=== PATIENT | female | born 1985 | race Caucasian/White ===

== ENCOUNTER 2018-11-13 15:15 | Emergency (ER) | payer OTHER ==
[~2018-11-13] VITALS: Ht 167.6 cm; Wt 97.9 kg
[2018-11-13 15:35] LABS: BASOPHILS % (AUTO) 0 % (0-1); EOSINOPHILS # (AUTO) 0.08 x10^3/uL (0-0.4); EOSINOPHILS % (AUTO) 1 % (1-7); LYMPHOCYTES # (AUTO) 1.12 x10^3/uL (1-3.4); LYMPHOCYTES % (AUTO) 7 % (22-44); MD NO; MEAN CORPUSCULAR HEMOGLOBIN 31.9 pg (27.0-34.8); MEAN CORPUSCULAR HGB CONC 35.3 g/dL (32.4-35.8); MEAN CORPUSCULAR VOLUME 90.3 fL (80-100); MEAN PLATELET VOLUME 6.8 fL (7.4-10.4); MONOCYTES # (AUTO) 0.53 x10^3/uL (0.2-0.8); MONOCYTES % (AUTO) 4 % (2-9); NEUTROPHILS # (AUTO) 13.54 x10^3/uL (1.8-6.8); NEUTROPHILS % (AUTO) 89 % (42-75); PLATELET COUNT 390 x10^3/uL (130-400); RED BLOOD COUNT 4.23 x10^6/uL (3.82-5.3)
[2018-11-13 15:46] LABS: ALBUMIN 3.9 g/dL (3.4-5.0); ANION GAP 6 mmol/L (5-15); CALCIUM 8.7 mg/dL (8.5-10.1); CHLORIDE 110 mmol/L (98-107)
[2018-11-13 15:52] LABS: ALANINE AMINOTRANSFERASE 20 U/L (12-78); ALKALINE PHOSPHATASE 64 U/L (45-117); BILIRUBIN,TOTAL 0.9 mg/dL (0.2-1.0); CREATININE 0.73 mg/dL (0.55-1.02); TOTAL PROTEIN 6.9 g/dL (6.4-8.2)
--- NOTE | 2018-11-13 15:54 | NUR ---
US AT BEDSIDE.
--- NOTE | 2018-11-13 16:27 | NUR ---
PT TO ROOM 14 W/ C/O ABD PAIN STARTED THIS AM WORSENED AT 1300. PT STATES PAIN STARTED IN PELVIC REGION AND NOW HAS PAIN IN BILAT UPPER ABD QUADRANTS. PT RESTING ON GURNEY. STATES PAIN WORSE TO RUQ.
--- NOTE | 2018-11-13 16:34 | NUR ---
PT UNABLE TO PROVIDE UA SAMPLE AT THIS TIME.
--- NOTE | 2018-11-13 16:45 | NUR ---
PT RESTING ON GURNEY. RICHARDS. DISCUSSED RESULTS W/ DR. CLARISA MD RESIDENT.
--- NOTE | 2018-11-13 17:13 | NUR ---
PT TAKEN TO CT IN STABLE CONDITION.
[2018-11-13] MEDS ORDERED: OMNIPAQUE 350 MG/ML, 100ML BOTTLE ONE (17:34)
--- NOTE | 2018-11-13 18:13 | NUR ---
PT RESTING ON GURNEY. NADN. FORREST. PT CHART REVIEWED AND PLACED FOR RECHECK.
[2018-11-13 18:52] VITALS: BP 124/68
--- NOTE | 2018-11-13 19:20 | NUR ---
AT BESIDE FOR RECHECK. IVF INFUSING. POC DISCUSSED. PT AND FRIEND DENY FURTHER NEEDS AT THIS TIME.
[2018-11-13] MEDS ORDERED: SODIUM CHLORIDE 0.9%, 500ML IVBOLUS ONE (19:30)
[2018-11-13 19:31] LABS: BASOPHILS # (AUTO) 0.03 x10^3/uL (0-0.1); BASOPHILS % (AUTO) 0 % (0-1); EOSINOPHILS # (AUTO) 0.05 x10^3/uL (0-0.4); EOSINOPHILS % (AUTO) 0 % (1-7); LYMPHOCYTES # (AUTO) 1.33 x10^3/uL (1-3.4); LYMPHOCYTES % (AUTO) 12 % (22-44); MD NO; MEAN CORPUSCULAR HEMOGLOBIN 31.8 pg (27.0-34.8); MEAN CORPUSCULAR HGB CONC 34.9 g/dL (32.4-35.8); MEAN CORPUSCULAR VOLUME 91.2 fL (80-100); MEAN PLATELET VOLUME 6.7 fL (7.4-10.4); MONOCYTES # (AUTO) 0.49 x10^3/uL (0.2-0.8); MONOCYTES % (AUTO) 4 % (2-9); NEUTROPHILS # (AUTO) 9.58 x10^3/uL (1.8-6.8); NEUTROPHILS % (AUTO) 84 % (42-75); PLATELET COUNT 310 x10^3/uL (130-400); RED BLOOD COUNT 3.63 x10^6/uL (3.82-5.3); RED CELL DISTRIBUTION WIDTH 13.6 % (9.6-15.2)
--- NOTE | 2018-11-13 19:44 | NUR ---
IVF CONTINUES TO INFUSE. POC DISCUSSED. PT AND FRIEND DENY FURTHER NEEDS AT THIS TIME.
--- NOTE | 2018-11-13 20:14 | NUR ---
Patient/Caregiver given discharge instructions and they have confirmed that they understand the instructions. Patient ambulatory with steady gait.
== END 2018-11-13 20:16 | disposition home or self-care (01) ==
LOC: ED 20:00
DX: N83.291 Other ovarian cyst, right side (principal); R55 Syncope and collapse; R00.0 Tachycardia, unspecified
CPT/HCPCS: 36415; 74177; 76700; 80053; 83690; 84703; 85025; 93005; 96360; 99284; J7040; Q9967